=== PATIENT | male | born 1935 | race Caucasian/White ===

== ENCOUNTER → 2016-10-20 | Outpatient (CLI) | payer MEDICARE, OTHER ==
[~2016-10-20] MED LIST: ASPIR 8181 M1 PO; GLUCOSAMINE H1500 MG PO; PRAVACHOL10 MG PO; PRINIVIL10 MG PO
== END | disposition home or self-care (01) ==
LOC: CDC 08:21
DX: R94.31 Abnormal electrocardiogram [ECG] [EKG] (principal); N40.1 Benign prostatic hyperplasia with lower urinary tract symptoms; I25.2 Old myocardial infarction
CPT/HCPCS: 93000